=== PATIENT | female | born 1945 | race African-American/Black ===

== ENCOUNTER 2016-10-06 11:19 | Outpatient (CLI) | payer MEDICARE ==
--- NOTE | 2016-10-06 12:34 | Mammography Report ---
BONE DENSITY STUDY: DEFINITIONS: BMD = Bone Mineral Density T-score = BMD related to mean peak bone mass of young adult (mean expressed in Standard Deviation) Z-score = Age matched BMD expressed in SD World Health Organization (WHO) Diagnostic Criteria Normal T-score > -1 SD Osteopenia T-score between -1 and -2.4 SD Osteoporosis T-score -2.5 SD or below FINDINGS: The weighted average BMD of lumbar spine L1-L4 is 0.678 with a T-score of -3.4. The weighted average BMD of hip is 0.606 with a T-score of -2.8. IMPRESSION: The patient's T-score is diagnostic for osteoporosis and high relative risk for fracture. NOTE: BMD is not the only risk factor for fracture; also consider factors such as the patient's age, risk of falling, previous osteoporotic fracture, family history of osteoporotic fractures, current smoker, and low body weight. Fountain's triangle is a region of interest in femur, predominantly of trabecular bone. It is not a true anatomic site, and [facility] does not recommend its use clinically.
== END 2016-10-06 11:20 | disposition home or self-care (01) ==
LOC: MAMMO 11:19
PROVIDERS: ATTEND Family Medicine
DX: M81.0 Age-related osteoporosis without current pathological fracture (principal)
CPT/HCPCS: 77080

== ENCOUNTER 2017-05-25 09:07 | Outpatient (CLI) | payer MEDICARE ==
[2017-05-25 09:47] LABS: Blood Urea Nitrogen 11 mg/dL (7-17)
--- NOTE | 2017-05-25 15:38 | Cat Scan Report ---
CT scan of chest abdomen and pelvis with IV contrast: Compared to 07/27/16. History: Colon cancer. Findings: No endobronchial or mediastinal mass. No mediastinal hilar or axillary adenopathy. No pleural or pericardial effusion. Pleural-based ill-defined density left lung/left upper lobe seen on series 2 image 55. Adjacent groundglass opacity. Total diameter 1.6 x 1.2 cm. Mild emphysematous changes. Bilateral apical scarring. Normal spleen pancreas and gallbladder. Craniocaudad dimension the liver 22 cm. Normal adrenals and kidney parenchyma and bladder. No free intraperitoneal fluid ,air or periaortic adenopathy. Normal aorta. There is single right inguinal lymph node again identified without interval change. Stable postsurgical changes. Impression: Pleural based density left lung, pneumonia or metastatic disease. Further evaluation recommended. No definite bony metastatic disease.
== END 2017-05-25 09:08 | disposition home or self-care (01) ==
LOC: CT 09:07
PROVIDERS: ATTEND Internal Medicine Hematology & Oncology
DX: C18.0 Malignant neoplasm of cecum (principal); G62.0 Drug-induced polyneuropathy; R63.4 Abnormal weight loss; J98.4 Other disorders of lung; R10.30 Lower abdominal pain, unspecified
CPT/HCPCS: 36415; 71260; 74177; 82565; 84520; Q9967